=== PATIENT | female | born 1995 | race Caucasian/White ===

== ENCOUNTER 2017-08-19 18:54 | Inpatient (IN) | payer OTHER, SELFPAY ==
[~2017-08-19] VITALS: Ht 152.4 cm; Wt 47.3 kg
[2017-08-19] MEDS ORDERED: GI COCKTAIL 50ML BTL(HYOSCYAMINE/MAALOX/LIDOCAINE VISCOUS)(1:3:1) PO ONE (22:00)
[2017-08-19 22:16] LABS: BASO % 0.3 % (0.0-1.0); EOS % 0.4 % (0.0-3.0); IMMATURE GRANULOCYTE % 0.2 % (0-0); LYMPH # 2.4 10^3/uL (1.5-6.5); LYMPH % 25.8 % (24.0-44.0); MEAN CORPUSCULAR HEMOGLOBIN 29.2 pg (27.0-33.0); MEAN CORPUSCULAR HGB CONC 33.4 g/dl (32.0-36.5); MEAN CORPUSCULAR VOLUME 87.4 fl (80.0-96.0); MONO # 0.5 10^3/uL (0.0-0.8); MONO % 4.9 % (0.0-5.0); NEUTROPHILS # 6.4 10^3/uL (1.8-7.7); NEUTROPHILS % 68.4 % (36.0-66.0); PLATELET COUNT, AUTOMATED 201 10^3/uL (150-450); RED CELL DISTRIBUTION WIDTH 13.4 % (11.5-14.5); WHITE BLOOD COUNT 9.3 10^3/uL (4.0-10.0)
[2017-08-19 22:52] LABS: ALBUMIN 4.2 GM/DL (3.2-5.2); ALBUMIN/GLOBULIN RATIO 1.11 (1.00-1.93); ALKALINE PHOSPHATASE 199 U/L (45-117); ALT/SGPT 625 U/L (12-78); ANION GAP 6 MEQ/L (8-16); AST/SGOT 502 U/L (15-37); BILIRUBIN,DIRECT 0.3 MG/DL (0.0-0.2); BILIRUBIN,TOTAL 0.8 MG/DL (0.2-1.0); BLOOD UREA NITROGEN 10 MG/DL (7-18); CARBON DIOXIDE LEVEL 26 MEQ/L (21-32); CHLORIDE LEVEL 105 MEQ/L (98-107); CREATININE FOR GFR 0.57 MG/DL (0.55-1.02); GLOMERULAR FILTRATION RATE > 60.0 (>60); GLUCOSE, FASTING 98 MG/DL (70-105); POTASSIUM SERUM 3.8 MEQ/L (3.5-5.1); SODIUM LEVEL 137 MEQ/L (136-145)
[2017-08-19 23:26] LABS: AMYLASE 5012 U/L (25-115)
[2017-08-19] MEDS ORDERED: ISOVUE-370 76% 100ML VIAL (Q9967) As Ordered ONE (23:45)
[2017-08-19] MEDS ORDERED: NS 1,000 ML IV ONE (23:45)
[2017-08-20] MEDS ORDERED: MORPHINE 4 MG/ML 1ML SYRINGE IV ONE
[2017-08-20] MEDS ORDERED: ONDANSETRON 4MG/2ML VIAL (J2405) IV ONE
--- NOTE | 2017-08-20 00:40 | REPUSA ---
CLINICAL HISTORY: RUQ pain. TECHNIQUE: Realtime sonographic images were obtained in multiple projections. COMMENTS: The visualized liver is of uniform echo texture without evidence of mass or defect. There is no intra or extrahepatic biliary ductal dilatation. The common bile duct measures 2.4 mm. The gallbladder is physiologically distended with evidence of calculi. The gallbladder wall is not thickened and there i s no pericholecystic fluid. The visualized portions of the pancreas are unremarkable. The right kidney measures 9.3x4.8x3.6 cm. IMPRESSION: Cholelithiasis. No evidence of acute cholecystitis. Thank you for your kind referral of this patient.
--- NOTE | 2017-08-20 01:00 | REPUSA ---
CLINICAL HISTORY: Abdominal pain. TECHNIQUE: Multiple axial, sagittal and coronal CT images were obtained through the abdomen and pelvi s after administration of intravenous contrast material. COMMENTS: 1.8 cm left ovarian ruptured follicle/corpus luteum cyst. Small amount of free pelvic fluid. Diffuse thickening of the splenic flexure/descending colon. The liver is of uniform attenuation without mass or defect. There is no intra or extrahepatic biliary ductal dilatation. The spleen is normal. The gallbladder is within normal limits. Minimal peripancre atic fat thickening. The pancreas is otherwise of normal contour and attenuation characteristics. The re is no evidence of adrenal mass. Fluid-filled small bowels. Minimal peripancreatic fat thickening. Both kidneys demonstrate prompt and equal nephrograms. The kidneys are normal in size, shape and conf iguration. There is no evidence of renal or ureteral mass. No renal or ureteral calculi are identifie d. There is no hydroureter or hydronephrosis. No evidence for appendicitis. No evidence for small or large bowel obstruction. There is no evidence of intrinsic or extrinsic bladder mass. There is small amount of free pelvic flu id. Images of the lung bases show no evidence of pleural or parenchymal mass. There are no pleural effusi ons. The bony structures are free of lytic or blastic lesions. IMPRESSION: Diffuse thickening of the splenic flexure of the colon/descending colon. Underdistention, spasm versu s colitis. Small amount of fat free fluid in the abdomen and pelvis. Left ovarian ruptured follicle/corpus luteum cyst. Minimal peripancreatic fat thickening. Please correlate with lipase value. Thank you for your kind referral of this patient.
[2017-08-20] MEDS ORDERED: NS 1,000 ML IV ONE (01:15)
[2017-08-20] MEDS ORDERED: TYLE500T78 PO (01:34)
[2017-08-20] MEDS ORDERED: PERCOCET 5MG/325MG TAB PO PRN (02:00)
[2017-08-20] MEDS ORDERED: MORPHINE 2 MG/ML 1ML SYRINGE IV PRN (02:00)
[2017-08-20] MEDS ORDERED: ONDANSETRON 4MG/2ML VIAL (J2405) IV PRN (02:00)
[2017-08-20] MEDS ORDERED: KETOROLAC 30 MG/ML VIAL (J1885) IV PRN (02:00)
[2017-08-20 03:30] VITALS: BP 117/76
[2017-08-20] MEDS: LR 1,000 ML IV SCH ×2 (04:10→13:22)
--- NOTE | 2017-08-20 06:20 | HPE ---
DATE OF ADMISSION: 08/20/2017 PRIMARY CARE PROVIDER: None. CHIEF COMPLAINT: Epigastric abdominal pain. HISTORY OF PRESENT ILLNESS: This is a 22-year-old female patient with underlying medical history of asthma presented to the hospital with 3 days of progressively worsening epigastric abdominal pain that is sharp and intense, non-radiating. No relieving factor. No exacerbating factor. Denies any chest pain, pressure or discomfort. Yesterday, patient reported one episode of nausea and vomiting, nonbloody, nonbilious. No diarrhea. Reported decreased oral intake. Denies any chest pain, pressure discomfort, shortness of breath. No previous episode. No sick contact. No recent travel. ALLERGIES: No known drug allergies. PAST MEDICAL HISTORY: Asthma. PAST SURGICAL HISTORY: None. SOCIAL HISTORY: Patient does not drink alcoholic beverages, does not smoke, has three kids, lives with . No illicit drug use. FAMILY HISTORY: Denies any family history of coronary artery disease, cancers or pancreatitis. REVIEW OF SYSTEMS: Reported nausea and vomiting, epigastric abdominal pain. All other review of systems negative. HOME MEDICATIONS: - acetaminophen PHYSICAL EXAMINATION: Vital signs: Temperature 97.8. Pulse 74. Respirations 18. Blood pressure 121/74. Pulse oximetry 99% on room air. General: Patient alert, oriented times three, in no acute distress. HEENT: Normocephalic, atraumatic. Pulmonary: Bilateral clear to auscultation. Cardiac: Regular rate and rhythm. Normal, S1, S2. Abdomen: Epigastric tender to palpation. Soft. Normal bowel sounds. Extremities: No clubbing, cyanosis, or edema. LABORATORY: WBC 9.3, hemoglobin and hematocrit 14.2/42.5, platelets 201. Chemistry: Sodium 137, potassium 3.8, chloride 105, bicarbonate 26, BUN 10, creatinine 0.57, lipase 65,541, AST 502, ALT 625, alkaline phosphatase 199. Ultrasound of the gallbladder shows cholelithiasis. No evidence of cholecystitis. ASSESSMENT AND PLAN: This is a 22-year-old female patient with underlying medical history of asthma admitted to the hospital for acute pancreatitis. PROBLEMS: 1. Acute pancreatitis. Patient does not have alcohol history, likely secondary to cholelithiasis. Ultrasound of the liver, gallbladder does not show biliary dilatation. It does show cholelithiasis. Gastroenterology has been consulted. As per Dr. Melendrez, patient most likely has passed a stone. Will followup liver function tests (LFTs), lipase. Pain medication and intravenous (IV) fluids as prescribed. Patient is currently nothing by mouth. Will get magnetic resonance cholangiopancreatography (MRCP). If showing any obstructive process, will need endoscopic retrograde cholangiopancreatography (ERCP). If not, patient will eventually need cholecystectomy, but the acute episode has resolved. 2. Asthma. Patient currently not having any wheeze. Continue to follow. 3. Deep venous thrombosis (DVT) prophylaxis. Lovenox subcutaneously. DISPOSITION: Pending clinical improvement. Patient currently nothing by mouth, advance diet as tolerated. IV fluids. Rn Liaison, Dr. Melendrez consulted.
[2017-08-20 07:00] LABS: MEAN CORPUSCULAR HEMOGLOBIN 29.5 pg (27.0-33.0); MEAN CORPUSCULAR HGB CONC 33.3 g/dl (32.0-36.5); MEAN CORPUSCULAR VOLUME 88.6 fl (80.0-96.0); RED CELL DISTRIBUTION WIDTH 13.4 % (11.5-14.5); WHITE BLOOD COUNT 9.1 10^3/uL (4.0-10.0)
[2017-08-20 07:38] LABS: ALBUMIN 3.1 GM/DL (3.2-5.2); ALBUMIN/GLOBULIN RATIO 0.94 (1.00-1.93); ALKALINE PHOSPHATASE 142 U/L (45-117); ALT/SGPT 418 U/L (12-78); ANION GAP 5 MEQ/L (8-16); AST/SGOT 261 U/L (15-37); BILIRUBIN,TOTAL 0.7 MG/DL (0.2-1.0); BLOOD UREA NITROGEN 6 MG/DL (7-18); CALCIUM LEVEL 8.1 MG/DL (8.5-10.1); CARBON DIOXIDE LEVEL 27 MEQ/L (21-32); CHLORIDE LEVEL 106 MEQ/L (98-107); CREATININE FOR GFR 0.46 MG/DL (0.55-1.02); GLOMERULAR FILTRATION RATE > 60.0 (>60); GLUCOSE, FASTING 73 MG/DL (70-105); MAGNESIUM LEVEL 2.1 MG/DL (1.8-2.4); POTASSIUM SERUM 3.7 MEQ/L (3.5-5.1); SODIUM LEVEL 138 MEQ/L (136-145); TOTAL PROTEIN 6.4 GM/DL (6.4-8.2)
[2017-08-20 08:00] VITALS: BP 99/65
[2017-08-20] MEDS ORDERED: ENOXAPARIN 40 MG/0.4 ML SYRINGE (J1650) SC SCH (09:00)
--- NOTE | 2017-08-20 10:32 | REP ---
MRCP examination: MRI abdomen without contrast. History: Pancreatitis. History of abdominal pain. Comparison CT study: August 20, 2017. Technique: Axial and coronal T2-weighted spin echo and 3-D gradient echo images are acquired. In addition a 3-D MRCP acquisition is performed and maximal intensity projection images are generated and reviewed rotationally. MRCP findings: The intrahepatic and extrahepatic biliary tract is normal in caliber. Main pancreatic duct is unremarkable. No biliary dilation is seen. No evidence of stricture. No hepatic or splenic mass lesion is observed. Study is otherwise unremarkable. Impression: Unremarkable MRCP examination. Signed by Matt Potter MD 08/20/2017 03:28 P
[2017-08-20] MEDS: METOCLOPRAMIDE INJ 10MG/2ML VIAL (J2765) IV SCH ×2 (11:26→20:01)
[2017-08-20] MEDS ORDERED: METOCLOPRAMIDE 10 MG TAB PO SCH (14:00)
[2017-08-20 15:56] LABS: CHOLESTEROL LEVEL 144 MG/DL (<200); TRIGLYCERIDES LEVEL 52 MG/DL (<150)
[2017-08-20 16:00] VITALS: BP 106/57
--- NOTE | 2017-08-20 17:07 | IPNPDOC ---
Subjective Date Seen The patient was seen on 08/20/17. Subjective Chief Complaint/HPI The patient is a 22-year-old female admitted with a reason for visit of Acute Pancreatitis. Patient was seen this morning laying comfortably in bed. Patient states she is feeling better today but her nausea remains. She had one episode of vomiting while being taken for her MRI this morning and described it as bright green, denied any blood. She states that she didn't sleep well last night and she has yet to have a bowel movement today. Constitutional: Denies: Chills, Fever ENT: Denies: Head Aches Pulmonary: Denies: Dyspnea, Cough Cardiovascular: Denies: Chest Pain Gastrointestinal: Reports: Nausea, Vomiting, Abdominal Pain (epigastric area ) , Constipation, Denies: Diarrhea Genitourinary: Denies: Dysuria, Frequency Other systems diet - consisting largely of fatty foods patient denies use of hormonal control Objective Physical Examination General Exam: Positive: Alert, Cooperative, No Acute Distress Eye Exam: Negative: Sclera icteric ENT Exam: Positive: Mucous membr. moist/pink Neck Exam: Positive: Supple, Negative: JVD Chest Exam: Positive: Clear to auscultation, Normal air movement, Negative: Rales, Rhonchi, Wheezing Heart Exam: Positive: Rate Normal, Normal S1, Normal S2, Negative: Gallops, Murmurs, Rubs Abdomen Exam: Positive: BS Hyperactive, Soft, Tenderness (epigastric region ) Extremity Exam: Positive: Normal pulses, Negative: Edema Skin Exam: Negative: Other skin issue (jaundice) Assessment /Plan Assessment 1. acute pancreatitis. Patient is currently NPO receiving IV fluids, Has morphine and Percocet as needed for pain, Zofran as needed for nausea and added Reglan this AM. Patient has been afebrile since admission. Gallbladder ultrasound performed yesterday revealed cholelithiasis with no cholecystitis. Gastroenterology has been consulted, as per Dr. Melendrez, the patient likely passed a stone. Abdominal CT with IV contrast revealed minimal peripancreatic fat thickening. MRCP performed this morning is pending, should it reveal an obstruction an ERCP may be warranted. Her lipase on admission was 65,541 and is trending downwards at 14,648 today. Her AST and ALT are also trending downwards from 502 and 261, respectively, on admission. Hepatitis A, B, and C antibodies are pending. Urine culture is pending, urinalysis revealed no evidence of urinary tract infection. Corrected calcium is within normal limits. Patient will remain NPO, if labs keep downtrending and pain keeps decreasing. 2. Anemia. Normocytic. Hemoglobin of 11.4, hematocrit of 34.2. Patient denies chest pain, shortness of breath. May be due to the dilutional effect of large bolus of IV fluids. Will continue to monitor. 3. History of asthma. Patient denies shortness of breath and states she uses her inhaler infrequently. Patient was counseled that should she require it, her home dose Ventolin will be prescribed. 4. DVT prophylaxis. Lovenox was discontinued due to platelet count of 166 and her age/ability to ambulate. SCDs and TEDS in place. 5. Diet. Patient has clear liquid diet on board and when she is ready she start eating. Tomorrow will consider advancing her diet as tolerated pending how she does today. Plan/VTE VTE Prophylaxis Ordered?: Yes (SCD and sequential) VS, I&O, 24H, Fishbone Vital Signs/I&O Vital Signs Date Time Temp Pulse Resp B/P (MAP) Pulse Ox O2 Delivery O2 Flow Rate FiO2 08/20/17 08:00 97.6 77 18 99/65 (76) 99 Room Air I&O- Last 24 Hours up to 6 AM 08/21/17 06:00 Intake Total 0 ml Balance 0 ml Laboratory Data 24H LABS Laboratory Tests 2 08/19/17 22:07: Immature Granulocyte % (Auto) 0.2H, White Blood Count 9.3, Red Blood Count 4.86 , Hemoglobin 14.2, Hematocrit 42.5, Mean Corpuscular Volume 87.4, Mean Corpuscular Hemoglobin 29.2, Mean Corpuscular Hemoglobin Concent 33.4, Red Cell Distribution Width 13.4, Platelet Count 201, Neutrophils (%) (Auto) 68.4H, Lymphocytes (%) (Auto) 25.8, Monocytes (%) (Auto) 4.9, Eosinophils (%) (Auto) 0.4, Basophils (%) (Auto) 0.3, Neutrophils # (Auto) 6.4, Lymphocytes # (Auto) 2.4, Monocytes # (Auto) 0.5, Eosinophils # (Auto) 0.0, Basophils # (Auto) 0.0, Immature Granulocyte # (Auto) 0.0, Nucleated Red Blood Cells % (auto) 0.0, Urine Appearance CLEAR, Urine Color YELLOW, Urine pH 5.0, Urine Specific [place] 1.013, Urine Protein NEGATIVE, Urine Glucose (UA) NEGATIVE, Urine Ketones NEGATIVE, Urine Urobilinogen 0.2, Urine Bilirubin NEGATIVE, Urine Leukocyte Esterase NEGATIVE, Urine Blood NEGATIVE, Urine Nitrite NEGATIVE, Urine WBC (Auto) 1, Urine RBC (Auto) 2, Urine Hyaline Casts (Auto) 0, Urine Bacteria (Auto) NEGATIVE, Urine Squamous Epithelial Cells 1, Urine Mucus (Auto) SMALL, Urine Sperm (Auto) , Anion Gap 6L, Glomerular Filtration Rate > 60.0, Calcium Level 9.0, Aspartate Amino Transf (AST/SGOT) 502H, Alanine Aminotransferase (ALT/SGPT) 625H, Alkaline Phosphatase 199H, Total Bilirubin 0.8 , Direct Bilirubin 0.3H, Total Protein 8.0, Albumin 4.2, Albumin/Globulin Ratio 1.11, Amylase Level 5012H, Lipase 41906F 08/20/17 06:26: Anion Gap 5L, Glomerular Filtration Rate > 60.0, Calcium Level 8.1L, Aspartate Amino Transf (AST/SGOT) 261H, Alanine Aminotransferase (ALT/SGPT) 418H, Alkaline Phosphatase 142H, Total Bilirubin 0.7, Total Protein 6.4, Albumin 3.1#L , Albumin/Globulin Ratio 0.94L, Lipase 35508V, Blood Urea Nitrogen 6L, Creatinine 0.46L, Sodium Level 138, Potassium Level 3.7, Chloride Level 106, Carbon Dioxide Level 27, Magnesium Level 2.1 CBC/BMP Laboratory Tests 08/19/17 22:07 Red Blood Count 4.86, Mean Corpuscular Volume 87.4, Mean Corpuscular Hemoglobin 29.2, Mean Corpuscular Hemoglobin Concent 33.4, Red Cell Distribution Width 13.4 , Neutrophils (%) (Auto) 68.4 H, Lymphocytes (%) (Auto) 25.8, Monocytes (%) ( Auto) 4.9, Eosinophils (%) (Auto) 0.4, Basophils (%) (Auto) 0.3, Neutrophils # ( Auto) 6.4, Lymphocytes # (Auto) 2.4, Monocytes # (Auto) 0.5, Eosinophils # (Auto ) 0.0, Basophils # (Auto) 0.0 08/20/17 06:26 Red Blood Count 3.86 L, Mean Corpuscular Volume 88.6, Mean Corpuscular Hemoglobin 29.5, Mean Corpuscular Hemoglobin Concent 33.3, Red Cell Distribution Width 13.4, Calcium Level 8.1 L, Aspartate Amino Transf (AST/SGOT) 261 H, Alanine Aminotransferase (ALT/SGPT) 418 H, Alkaline Phosphatase 142 H, Total Bilirubin 0.7, Total Protein 6.4, Albumin 3.1 #L Microbiology Microbiology 08/19/17 Urine Culture, Received Pending GME ATTESTATION GME ATTESTATION My preceptor for this patient encounter was physically present in the building during the encounter and was fully available. As needed, all aspects of the patient interview, examination, medical decision making process, and medical care plan development were reviewed and approved by the preceptor. Preceptor is aware and concurs with the plan as stated in the body of this note and will attest to such by his/her cosignature. LEONARD EPSARZA DO Aug 20, 2017 10:53
[2017-08-20] MEDS ORDERED: SLF 3 ML SYR IV PRN (17:15)
[2017-08-20 20:00] VITALS: BP 122/86
[2017-08-20] MEDS: SLF 3 ML SYR IV SCH (20:02)
--- NOTE | 2017-08-20 21:43 | CR.PDOC ---
[facility] Consultation Consultation DATE OF CONSULTATION: Aug 20, 2017 at 12:54PM REFERRING PROVIDER: Dr. House ATTENDING PHYSICIAN: Dr. House REASON FOR CONSULTATION: Acute pancreatitis and abnormal LFTs.. HPI: 22-year-old female patient with h/o BA, came to ER with complaints of 3 days of progressively worsening epigastric abdominal pain associated with nausea and vomiting. Patient noted to have elevated lipase and amylase and abnormal LFTs and admitted and being treated for acute pancreatitis. GI consulted for the same. Patient reports that the abdominal pain was 10/10, sharp , epigastric pain, acute onset, continuous for 3 days, and associated with nausea and vomiting. Patient denies any previous episodes, sick contacts, alcohol use or any new medications or herbal medications. Pertinent negative GI symptoms: Patient denies diarrhea, loss of appetite, early satiety or unintentional weight loss. No history of hematemesis, melena or hematochezia. Patient reports regular bowel movements. Review of Systems: GI: as stated above CVS: No chest pain, No palpitations, No leg swelling. RS: No Shortness of breath, No Wheezing, no cough DOCKING PILOT: No dizziness, No motor weakness, No sensory problems Hematology: No bruising, No gum bleeding, Musculoskeletal: No joint pain, ambulating well. Skin: No rash : No hematuria, No burning sensation of the urine ENT: No ear discharge/ pain, No dysphagia. Eyes: No photophobia. Home medications: reviewed. Medical h/o: As above. Surgical h/o: None on abdomen. Social h/o: Denies Alcohol, smoking , IVDA/ drugs . Family h/o of GI cancers - None Prior Endoscopies: --- EGD -- none --- Colonoscopy -- none Prior GI evaluation: None. Exam: Vitals: reviewed General: Alert and oriented x 3, not in distress. HEENT: NO pallor, no icterus. Normal oropharynx, NO cervical lymph nodes. Chest: symmetric with bilateral clear air entry, CVS: S1, S2 heard, normal, no murmurs . Abdomen: non-distended, no surgical scars, soft, Mild epigastric tenderness, no rigidity or guarding, no palpable masses, normal bowel sounds heard. Rectal exam: deferred. Extremities: no pedal edema, pulses palpable. DOCKING PILOT: no focal motor or sensory deficits. Moves all extremities Skin: no rash. LABORATORY: Reviewed. Normal WBC< Hb/HCT- slight hemodilution after IV fluids. BUN 10, creatinine 0.57, lipase 65,541, AST 502, ALT 625, alkaline phosphatase 199. USG Abdomen: gallbladder shows cholelithiasis. No evidence of cholecystitis. MRI abdomen reviewed -- Non- dilated CBD. Impression: - Acute pancreatitis - likely biliary etiology. IN view of clinical symptoms, MRI and improving Laboratory results trend - likely passed CBD stone. - Abnormal LFTs - Likely from CBD stone ( passed) vs r/o viral and autoimmune hepatitis. Recommendations: - Patient educated about the test results, possible differential diagnoses and All questions answered. - Continue IV fluids -- prefer ringers lactate 3 ML / KG for 24 hours and then titrate based on fluid status. - Closely monitor fluid status - Respiratory status and Urine output. - Pain management - Monitor LFTs and CBC daily. - Will obtain Viral and autoimmune hepatitis panel ( ordered). - Clear liquid diet today. If tolerating well can advance as tolerated tomorrow afternoon. - DVT prophylaxis. - IF any change in clinical status or worsening LFTs will require ERCP for CBD evaluation and therapy of CBD stones if any. - The procedure, indications, risks ( acute pancreatitis and its complications, bleeding, perforation, infection, hypotension, respiratory depression, allergy, need for endotracheal intubation, surgery, colostomy, cardiac arrest, even ), benefits, limitations (e.g., missing a lesion), and all other alternatives ( including no intervention) were explained to the patient. Plan of care educated to patient and primary team.Patient verbalized understanding and agreed for plan of care. Allergies Coded Allergies: No Known Allergies (Unverified , 08/19/17) Home Medications Scheduled PRN Acetaminophen (Tylenol Extra Strength) 500 Mg Tab, 1,000 MG PO Q6H PRN for PAIN / FEVER, (Reported) SABIHA THOMAS MD Aug 20, 2017 21:42
[2017-08-21] VITALS: BP 105/59
[2017-08-21] MEDS: SLF 3 ML SYR IV SCH (04:27)
[2017-08-21] MEDS: METOCLOPRAMIDE INJ 10MG/2ML VIAL (J2765) IV SCH (04:27)
[2017-08-21 07:06] LABS: MEAN CORPUSCULAR HEMOGLOBIN 29.6 pg (27.0-33.0); MEAN CORPUSCULAR HGB CONC 33.3 g/dl (32.0-36.5); MEAN CORPUSCULAR VOLUME 88.9 fl (80.0-96.0); RED CELL DISTRIBUTION WIDTH 13.5 % (11.5-14.5); WHITE BLOOD COUNT 6.4 10^3/uL (4.0-10.0)
[2017-08-21 07:29] LABS: ALBUMIN 3.1 GM/DL (3.2-5.2); ALBUMIN/GLOBULIN RATIO 0.86 (1.00-1.93); ALKALINE PHOSPHATASE 134 U/L (45-117); ALT/SGPT 296 U/L (12-78); ANION GAP 4 MEQ/L (8-16); AST/SGOT 100 U/L (15-37); BILIRUBIN,TOTAL 0.7 MG/DL (0.2-1.0); BLOOD UREA NITROGEN 5 MG/DL (7-18); CALCIUM LEVEL 8.1 MG/DL (8.5-10.1); CARBON DIOXIDE LEVEL 28 MEQ/L (21-32); CHLORIDE LEVEL 106 MEQ/L (98-107); CREATININE FOR GFR 0.54 MG/DL (0.55-1.02); GLOMERULAR FILTRATION RATE > 60.0 (>60); GLUCOSE, FASTING 86 MG/DL (70-105); MAGNESIUM LEVEL 2.2 MG/DL (1.8-2.4); POTASSIUM SERUM 4.1 MEQ/L (3.5-5.1); SODIUM LEVEL 138 MEQ/L (136-145); TOTAL PROTEIN 6.7 GM/DL (6.4-8.2)
[2017-08-21 08:00] VITALS: BP 105/57
[2017-08-21] MEDS ORDERED: SENN8.6C PO (11:27)
--- NOTE | 2017-08-21 11:39 | DS.PDOC ---
Discharge Summary General Date of Admission Aug 20, 2017 at 01:53 Date of Discharge Aug 21, 2017 Attending Physician: TAMERA ORDOÑEZ MD Discharge Summary PROCEDURES PERFORMED DURING STAY: ultrasound of gallbladder, CT of abdomen with contrast, MRI of abdomen (MRCP). ADMITTING DIAGNOSES: 1. Acute pancreatitis 2. History of Asthma DISCHARGE DIAGNOSES: 1. acute pancreatitis. 2. Anemia 3. History of asthma. COMPLICATIONS/CHIEF COMPLAINT: Acute Pancreatitis. HISTORY OF PRESENT ILLNESS: This is a 22-year-old female patient with underlying medical history of asthma presented to the hospital with 3 days of progressively worsening epigastric abdominal pain that is sharp and intense, non-radiating. No relieving factor. No exacerbating factor. Denies any chest pain, pressure or discomfort. Yesterday, patient reported one episode of nausea and vomiting, nonbloody, nonbilious. No diarrhea. Reported decreased oral intake. Denies any chest pain, pressure discomfort, shortness of breath. No previous episode. No sick contact. No recent travel. HOSPITAL COURSE: Patient was admitted on 08/19 for acute pancreatitis. Patient was made NPO upon admission and received aggressive IV hydration. Her diet was advanced to clear liquids on 08/20, and advanced to regular diet as tolerated on 08/21. Patient had morphine and Percocet as needed for pain, Zofran and Reglan as needed for nausea. Patient has been afebrile since admission. Gallbladder ultrasound performed 08/19 revealed cholelithiasis with no cholecystitis. Gastroenterology was consulted, as per Dr. Melendrez, the patient likely passed a stone. Abdominal CT with IV contrast revealed minimal peripancreatic fat thickening. MRCP performed 08/20 revealed no biliary duct obstruction and a normal main pancreatic duct. Her lipase on admission was 65, 541 and was trending downwards as of yesterday. Her AST and ALT also were trending downwards from 502 and 261, respectively, on admission to 100 AND 296, respectively. Hepatitis A, B, and C antibodies, as well as autoimmune hepatitis panel are pending. Urine culture is pending, urinalysis revealed no evidence of urinary tract infection. Corrected calcium remained within normal limits. On hospital day 1 patients labs were indicative of a normocytic anemia. Normocytic. Hemoglobin and hematocrit have been trending upwards as of today. Patient denies chest pain, shortness of breath. This is likely due to the dilutional effect of large bolus of IV fluids. History of asthma. Patient denied symptomatology of asthma exacerbation and did not require her albuterol during this admission. DISCHARGE MEDICATIONS: Please see below. ALLERGIES: Please see below. PHYSICAL EXAMINATION ON DISCHARGE: VITAL SIGNS: Please see below. GENERAL: Alert and awake, appears stated age, appears well-nourished HEENT: normocephalic, atraumatic, no scleral icterus, mucous membranes moist and pink NECK: no JVD, no lymphadenopathy, supple CARDIOVASCULAR EXAMINATION: regular rate and rhythm, positive S1 and S2, no murmurs/rubs/gallops, peripheral pulses intact and equal in all four extremities RESPIRATORY EXAMINATION: clear to auscultation bilaterally with no rales/ wheezing/ronchi ABDOMINAL EXAMINATION: hyperactive bowel sounds in all four quadrants, no tenderness to palpation EXTREMITIES: no edema, no cyanosis, no swelling SKIN: normal turgor and temperature, no jaundice LABORATORY DATA: Please see below. IMAGIN08/19/2017 Gallbladder US - cholelithiasis with no evidence of acute cholecystitis. 08/19/2017 CT Abdomen/pelvis with IV contrast - Diffuse thickening of the splenic flexure of the colon/descending colon. Underdistention, spasm versus colitis. Small amount of fat free fluid in the abdomen and pelvis. Left ovarian ruptured follicle/corpus luteum cyst. Minimal peripancreatic fat thickening. Please correlate with lipase value. 08/20/2017 - MRI abdomen without contrast (MRCP) - MRCP findings: The intrahepatic and extrahepatic biliary tract is normal in caliber. Main pancreatic duct is unremarkable. No biliary dilation is seen. No evidence of stricture. No hepatic or splenic mass lesion is observed. Study is otherwise unremarkable. Impression: Unremarkable MRCP examination. ACTIVITY: As tolerated. DIET: regular diet as tolerated. DISCHARGE PLAN: 1. Acute Pancreatitis - resolved. Patient is tolerating regular diet. Discharge today and patient is to avoid fatty food. Patient has been NPO and clear liquids since admission, no bowel movement since then will discharge with Senna Cap #5 tabs PRN. 2. Anemia. Normocytic. H/H are stable. May be due to the dilutional effect of large bolus of IV fluids. Currently off fluids and H/H are uptrending patient can be discharged. 3. History of asthma. Continue home medication as proscribed. 4. Establish with PCP within 3-7 days from Discharge. DISCHARGE INSTRUCTIONS: 1.Establish and follow up with primary care provider within 3-7 days. 2. Drink lots of fluids. 3.Full diet as tolerated, avoid greasy/fatty foods. ITEMS TO FOLLOWUP ON OUTPATIENT: 1.Establish and follow up with primary care provider within 3-7 days. 2. Drink lots of fluids. 3.Full diet as tolerated, avoid greasy/fatty foods. DISCHARGE CONDITION: Stable. Time Spent on discharge: greater than 35 minutes. Vital Signs/I&Os Vital Signs Date Time Temp Pulse Resp B/P (MAP) Pulse Ox O2 Delivery O2 Flow Rate FiO2 08/21/17 04:00 98.8 08/21/17 00:00 95 18 105/59 (74) 99 Room Air Laboratory Data Labs 24H Laboratory Tests 2 08/21/17 06:37: Anion Gap 4L, Glomerular Filtration Rate > 60.0, Blood Urea Nitrogen 5L, Creatinine 0.54L, Sodium Level 138, Potassium Level 4.1, Chloride Level 106, Carbon Dioxide Level 28, Calcium Level 8.1L, Aspartate Amino Transf (AST/SGOT) 100H, Alanine Aminotransferase (ALT/SGPT) 296H, Alkaline Phosphatase 134H, Total Bilirubin 0.7, Total Protein 6.7, Albumin 3.1L, Magnesium Level 2.2, Albumin/Globulin Ratio 0.86L, Lipase 555H CBC/BMP Laboratory Tests 08/21/17 06:37 Red Blood Count 3.95 L, Mean Corpuscular Volume 88.9, Mean Corpuscular Hemoglobin 29.6, Mean Corpuscular Hemoglobin Concent 33.3, Red Cell Distribution Width 13.5, Calcium Level 8.1 L, Aspartate Amino Transf (AST/SGOT) 100 H, Alanine Aminotransferase (ALT/SGPT) 296 H, Alkaline Phosphatase 134 H, Total Bilirubin 0.7, Total Protein 6.7, Albumin 3.1 L Microbiology Microbiology 08/19/17 Urine Culture - Final, Complete Discharge Medications Scheduled PRN Senna (Senna) 8.6 Mg Cap, 1 CAP PO DAILY PRN for CONSTIPATION Allergies Coded Allergies: No Known Allergies (Unverified , 08/19/17) GME ATTESTATION GME ATTESTATION My preceptor for this patient encounter was physically present in the building during the encounter and was fully available. As needed, all aspects of the patient interview, examination, medical decision making process, and medical care plan development were reviewed and approved by the preceptor. Preceptor is aware and concurs with the plan as stated in the body of this note and will attest to such by his/her cosignature. LEONARD ESPARZA DO Aug 21, 2017 08:24
== END 2017-08-21 13:44 | disposition home or self-care (01) | DRG 440 ==
LOC: M ED 18:54 → M ED INP 08-20 01:53 → M PED 08-20 03:29
PROVIDERS: ADMIT Hospitalist; ATTEND Internal Medicine
DX: K85.90 Acute pancreatitis without necrosis or infection, unspecified (principal); J45.909 Unspecified asthma, uncomplicated; D50.9 Iron deficiency anemia, unspecified; K80.20 Calculus of gallbladder without cholecystitis without obstruction